=== PATIENT | male | born 2000 | race Hispanic/Latino ===

== ENCOUNTER 2022-06-03 13:12 | Emergency (ER) | payer MEDICAID, SELFPAY ==
--- NOTE | ~2022-06-03 | XR_ITS ---
EXAMINATION: XR foot RT min 3V DATE: 06/03/2022 13:31 INDICATION: Right great toe pain. TECHNIQUE: 4 views of right foot were obtained. COMPARISON: None. FINDINGS: There is mild hallux valgus. No fracture. There is mild osteoarthritis of first metatarsoph alangeal joint. IMPRESSION: 1. Mild hallux valgus. 2. Mild osteoarthritis of first metatarsophalangeal joint. Reviewed, dictated and finalized at location A. [facility] [employer]
[2022-06-03 13:14] VITALS: BP 157/78; PULSE 98; RESP 16; TEMP 36.7; O2SAT 100
--- NOTE | 2022-06-03 14:04 | ED.LOWEXIN ---
HPI - Extremity Injury (Lower) General Chief Complaint: Extremity Injury, Lower Stated Complaint: toe pain Time Seen by Provider: 06/03/22 13:32 History of Present Illness HPI Narrative: This is a 21-year-old male who denies past medical history, presenting to the emergency department complaining of 2 to 3 weeks of right first toe pain. He states the pain is 6/10, sharp, worsened with weightbearing and direct touch over the toe. He denies fevers. Related Data Allergies Allergy/AdvReac Type Severity Reaction Status Date / Time No Known Allergies Allergy Unverified 04/24/18 00:55 Review of Systems Review of Systems: CONSTITUTIONAL: Denies fever, chills, or sweats. CARDIOVASCULAR: Denies chest pain, palpitations, or edema. RESPIRATORY: Denies cough or dyspnea. GASTROINTESTINAL: Denies abdominal pain, nausea, vomiting, or diarrhea. SKIN: Denies rash or itching. MUSCULOSKELETAL: Right great toe pain denies back pain, joint pain, or myalgia. PMFSH Social History Social History (Updated 06/03/22 @ 19:43 by Louis Arevalo MD) Smoking status: Never smoker Alcohol intake: current Substance use: never Exam Narrative: GENERAL: Well-appearing, well-nourished, and in no acute distress. HEAD: Normocephalic, atraumatic. EYES: PERRLA and EOMI. CHEST: Clear to auscultation. No respiratory distress. No wheezes rales or rhonchi HEART: Regular rate and rhythm. No murmur heard. Normal peripheral pulses. ABDOMEN: Soft, nontender, nondistended, normal active bowel sounds. EXTREMITIES: Mild swelling noted over the right first MTP, no significant erythema, tender to palpation. Normal range of motion. No edema. SKIN: Warm, dry, no rash. NEURO: No focal deficits. Alert and oriented x3. PSYCH: Normal mood and affect. Course Course Emergency Course: 13:30 - X-ray not concerning for fracture or destructive changes of the toe. Mild hallux valgus changes noted. Exam is not concerning for infectious process. Discussed treatment options including NSAIDs and loose fitting shoes. Discussed return and emergency precautions including signs/symptoms of infectious process. Advised the patient to follow-up with his primary care doctor. The patient voiced understanding and is comfortable with the plan. All questions answered to his satisfaction. Vital Signs Vital signs: Vital Signs Temperature 98.1 F 06/03/22 13:14 Pulse Rate 98 06/03/22 13:14 Respiratory Rate 16 06/03/22 13:14 Blood Pressure 157/78 H 06/03/22 13:14 Pulse Oximetry 100 06/03/22 13:14 Temperature 98.1 F 06/03/22 13:14 Pulse Rate 98 06/03/22 13:14 Respiratory Rate 16 06/03/22 13:14 Blood Pressure 157/78 H 06/03/22 13:14 Pulse Oximetry 100 06/03/22 13:14 MDM - Extremity Injury (Lower) MDM Narrative Medical decision making narrative: Plan: Imaging, pain control, reassess Differential Diagnosis Differential diagnosis: Likely fracture of toe and other (Arthritis, gout, pseudogout, other) Discharge Plan Discharge Clinical Impression: Pain of right great toe Patient Disposition: Home, Self-Care Condition: Stable Instructions: Antibiotic Form, Gout (ED) Additional Instructions: You were seen in the emergency department. Your exam and x-ray are not concerning for broken bones. Your toe is pushed towards the middle, consistent with a bunion. I recommend pain medications including indomethacin and follow-up with a primary care doctor. If you develop fevers with severe pain, spreading redness, or have other emergent concerns for life, limb, or eyesight, return to the emergency department. Patient Language: Iranian Prescriptions: New indomethacin 50 mg capsule 50 mg PO BID Qty: 28 0RF Rx Instructions: administer with food or milk acetaminophen 500 mg capsule 1,000 mg PO Q8H PRN (Reason: pain) Qty: 60 0RF Follow-up/Referrals: UNKNOWN,DOCTOR [Primary Care Provider] - Stand Alone Forms: Wo
== END 2022-06-03 14:32 | disposition home or self-care (01) ==
PROVIDERS: Emergency Provider Preventive Medicine Aerospace Medicine
DX: M79.671 Pain in right foot (principal)
CPT/HCPCS: 73630; 99283